=== PATIENT | female | born 1990 | race Caucasian/White ===

== ENCOUNTER 2016-09-02 11:16 | Emergency (ER) | payer OTHER, MEDICAID ==
[~2016-09-02] VITALS: Ht 162.6 cm; Wt 71.1 kg
[~2016-09-02 11:16] MED LIST: IRON18TA2 PO; MECL25CH PO
[2016-09-02 11:23] VITALS: BP 102/67; PULSE 86; RESP 16; TEMP 98.2; O2SAT 100
[2016-09-02] MEDS ORDERED: PREN29TA PO (11:34)
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
== END 2016-09-02 12:00 | disposition home or self-care (01) ==
LOC: PHED 11:16
DX: Z04.1 Encounter for examination and observation following transport accident (principal); O26.891 Other specified pregnancy related conditions, first trimester; Z3A.09 9 weeks gestation of pregnancy
CPT/HCPCS: 99283

== ENCOUNTER 2016-09-10 13:17 | Emergency (ER) | payer BC, MEDICAID ==
[~2016-09-10] VITALS: Ht 165.1 cm; Wt 71.3 kg
[~2016-09-10 13:17] MED LIST changes: -IRON18TA2 PO; -MECL25CH PO; +PREN29TA PO
[2016-09-10 13:27] VITALS: BP 117/81; PULSE 93; RESP 18; TEMP 99.2; O2SAT 98
[2016-09-10 14:43] LABS: BLOOD, URINE LARGE (NEG); GLUCOSE,URINE NEG (NEG); KETONE, URINE NEG (NEG); NITRITE,URINE NEG (NEG)
[2016-09-10] MEDS ORDERED: SODIUM CHLOR 0.9% 1000 ML INJ 1,000 ML IV ONE (15:15)
--- NOTE | 2016-09-10 15:15 | PD ---
HPI . Abdominal cramping and diarrhea Chief Complaint: Related Problem Time Seen by Provider: 14:25 Travel History International Travel<30 days: No Contact w/Intl Traveler<30days: No Traveled to known affect area: No History of Present Illness HPI Patient presents stating that she is about 10 weeks . She states that she started having abdominal cramping with diarrhea a day or 2 ago., She saw a brown vaginal discharge. She subsequently presented to us for evaluation. She has not been seen by OB yet. She does state that she was seen earlier ago and had an ultrasound done in the emergency department that showed a viable . 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 BEER) Tobacco Use: Yes (09/07 - PPD) Substance Use: No Allergies-Medications (Allergen,Severity, Reaction): Coded Allergies: No Known Allergies (Unverified , 09/10/16) Reported Meds & Prescriptions Reported Meds & Active Scripts Active Reported Plus Iron 29-1 mg ( Vit-Iron Carbonyl) 1 Tab Tab 1 Tab PO DAILY Review of Systems Except as stated in HPI: all other systems reviewed are Neg General / Constitutional: Positive: Other (fatigue), No: Fever, Chills Gastrointestinal: Positive: Diarrhea, Abdominal Pain, No: Vomiting Genitourinary: Positive: Discharge Physical Exam Narrative GENERAL: Healthy-appearing young lady in no acute distress. SKIN: Warm and dry. HEAD: Atraumatic. Normocephalic. EYES: Pupils equal and round. ENT: No nasal bleeding or discharge. Mucous membranes pink. Slightly dry. NECK: Trachea midline. Neck is supple. CARDIOVASCULAR: Regular rate and rhythm. RESPIRATORY: No accessory muscle use. GASTROINTESTINAL: Abdomen soft, non-tender, nondistended. : Normal female external genitalia. Scant old appearing blood in the vaginal vault. Os is closed. Uterus feel about 10 weeks in size. MUSCULOSKELETAL: No obvious deformities. No edema. NEUROLOGICAL: Awake and alert. No obvious cranial nerve deficits. Motor grossly within normal limits. Normal speech. PSYCHIATRIC: Appropriate mood and affect; insight and judgment normal. Data Data Last Documented VS Vital Signs Date Time Temp Pulse Resp B/P Pulse Ox O2 Delivery O2 Flow Rate FiO2 09/10/16 16:49 74 16 118/80 98 Room Air 09/10/16 13:27 99.2 Orders Beta Hcg (Quant/Titer) (09/10/16 14:26) Complete Rh (09/10/16 14:26) Urinalysis - C+S If Indicated (09/10/16 14:26) Ed Urine Pregnancytest Poc (09/10/16 14:26) Sodium Chlor 0.9% 1000 Ml Inj (Ns 1000 M (09/10/16 15:15) Gc And Chlamydia Pcr (09/10/16 15:15) Wet Prep Profile (09/10/16 15:15) Us Pelvis (Ques Preg/Ectopic) (09/10/16 ) Rhogam Only (09/10/16 16:48) Labs Laboratory Tests Test 09/10/16 09/10/16 09/10/16 14:35 14:43 16:34 Urine Color YELLOW Urine Turbidity CLOUDY Urine pH 6.0 Urine Specific [place] 1.014 Urine Protein NEG mg/dL Urine Glucose (UA) NEG mg/dL Urine Ketones NEG mg/dL Urine Occult Blood LARGE Urine Nitrite NEG Urine Bilirubin NEG Urine Leukocyte Esterase TRACE Urine RBC 0-3 /hpf Urine WBC 3-5 /hpf Urine Squamous Epithelial > 8 /hpf Cells Urine Bacteria FEW /hpf Microscopic Urinalysis Comment CULT NOT INDICATED Human Chorionic Gonadotropin, [address] MIU/ML Quant Blood Type O NEGATIVE Rho(D) Type NEGATIVE Clue Cells (Wet Prep) NONE SEEN Vaginal Trichomonas (Wet Prep) NONE SEEN Vaginal Yeast (Wet Prep) NONE SEEN MDM Medical Decision Making Medical Screen Exam Complete: Yes Emergency Medical Condition: Yes Differential Diagnosis Differential diagnosis of bleeding in includes but is not limited to physiologic bleeding, spontaneous AB, ectopic , placenta previa. Narrative Course Patient presents with dominant cramping and diarrhea. She is 10 weeks . She also has a scant discharge. I have done a quick look ultrasound and there is activity in the uterus. UA looks negative for infection. Quantitative hCG is 30,000. Wet prep is negative. Her blood type is O-. RhoGam was ordered. 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 Diagnosis Primary Impression: Bleeding in early Additional Impressions: Diarrhea Qualified Code: R19.7 - Diarrhea, unspecified type Abdominal cramping Patient Instructions: Acute Diarrhea (ED), General Instructions Disposition: 01 DISCHARGE HOME Condition: Stable Delia Law MD Sep 10, 2016 15:15
[2016-09-10 15:28] LABS: BETA HCG QUANT 30078 MIU/ML (0-5)
[2016-09-10 15:32] LABS: RBC, URINE 0-3 /hpf (0-3); URINE COLOR YELLOW (YELLW/STRAW)
[2016-09-10 15:33] LABS: BACTERIA, URINE FEW /hpf; COMMENT (UR) CULT NOT INDICATED; CULTURE IF INDICATED CULT NOT INDICATED; SQUAMOUS EPITHELIAL CELL URINE > 8 /hpf (0-5)
[2016-09-10 16:49] VITALS: BP 118/80; PULSE 74; RESP 16; O2SAT 98
--- NOTE | 2016-09-10 17:09 | RADHPO ---
EXAM DATE/TIME: 09/10/2016 16:06 [place] COMPARISON: No previous studies available for comparison. INDICATIONS : Pelvic cramping and brown vaginal discharge. LAB(S): Beta-hC MEDICAL HISTORY : . Seizures. Anemia. SURGICAL HISTORY : [place] teeth extraction. ENCOUNTER: Initial ACUITY: 4-6 days PAIN SCORE: 2/10 LOCATION: Bilateral pelvis MEASUREMENTS: UTERUS: 9.9 x 7.4 x 6.3 cm ENDOMETRIAL STRIPE: 20 mm RIGHT OVARY: 2.5 x 2.0 x 2.0 cm LEFT OVARY: 2.9 x 1.7 x 2.4 cm FINDINGS: UTERUS: Intrauterine gestational sac containing a pole is noted. Laura-rump length is 2.7 cm compatible with a gestational age of 9 weeks and 4 days. heart motion was documented at a heart rate of 1 62 beats per minute. A crescent shaped heterogeneous area of fluid accumulation is seen along the ges tational sac on the left. This measures 3.5 x 1.7 x 2.8 cm. Complex hypoechoic area seen along the right lateral margin of the vaginal wall it measures approxima tely 4.8 x 0.8 x 1.6 cm. RIGHT OVARY: Ovary contains no mass or significant cystic lesion. LEFT OVARY: A complex mixed echogenic cystic appearing lesion is identified the left ovary. It measures approxima tely 2.1 cm in size. MISCELLANEOUS: No free fluid. CONCLUSION: Intrauterine with a gestational age of approximately 9 weeks and 4 days. There is documente d heart motion. Suspected subchorionic hemorrhage along the left side of the gestational sac. Right lateral wall vaginal complex fluid collection. Complex left ovarian cyst suggesting a corpus luteal cyst. Armando Mills MD on September 10, 2016 at 17:01 Board Certified Radiologist. This report was verified electronically.
[2016-09-10 22:29] LABS: CHLAMYDIA PCR NOT DETECTED (NOT DETECT); NEISSERIA PCR NOT DETECTED (NOT DETECT)
== END 2016-09-10 17:27 | disposition home or self-care (01) ==
LOC: PHED 13:17
DX: O46.90 Antepartum hemorrhage, unspecified, unspecified trimester (principal); O99.611 Diseases of the digestive system complicating pregnancy, first trimester; R19.7 Diarrhea, unspecified; R10.9 Unspecified abdominal pain; Z3A.10 10 weeks gestation of pregnancy
CPT/HCPCS: 76700; 81001; 84702; 84703; 87210; 87491; 87591; J7030; 90384; J2790

== ENCOUNTER → 2016-09-11 | Outpatient (CLI) | payer MEDICAID | LOC: HPND 10:01 | PROVIDERS: ATTEND Emergency Medicine | DX: O36.0190 Maternal care for anti-D [Rh] antibodies, unspecified trimester, not applicable or unspecified (principal) | CPT/HCPCS: 90384; 96372; J2790 ==

== ENCOUNTER 2017-01-20 08:16 | Emergency (ER) | payer MEDICAID ==
[2017-01-20 08:32] VITALS: BP 98/63; PULSE 91; RESP 18; TEMP 98.3
[2017-01-20 08:45] VITALS: PULSE 84
--- NOTE | 2017-01-20 08:53 | PD ---
HPI Chief Complaint Back pain and pelvic pressure Date Seen: Jan 20, 2017 Time Seen: 08:46 (Angelina Villegas MD) Travel History International Travel<30 Days: No Contact w/Intl Traveler<30Days: No Known Affected Area: No (Angelina Villegas MD) History of Present Illness HPI This is a 28-year-old white female para 1001 is currently at 29 weeks she called me this morning complaining of pelvic pressure and back pain which is been increasing his last night. She also has not felt the baby move since last night I told her to come in for an evaluation Para: 1 : 2 (Angelina Villegas MD) History Past Medical History Medical History: Denies Significant Hx (Angelina Villegas MD) Past Surgical History Narrative Surgical Removal of wisdom teeth (Angelina Villegas MD) Family History Family History: Negative (Angelina Villegas MD) Social History Alcohol Use: Yes Tobacco Use: Yes Substance Abuse: Yes (Angelina Villegas MD) Allergies-Medications (Allergen,Severity, Reaction): Coded Allergies: No Known Allergies (Unverified , 09/10/16) Home Meds Reported Medications Vit-Iron Carbonyl ( Plus Iron 29-1 mg)1 Tab Tab1 Tab PO DAILY #30 TAB Ref 0 09/02/16 Review of Systems Except as stated in HPI: all other systems reviewed are Neg Genitourinary: Pelvic Pain (Angelina Villegas MD) Physical Exam Vital Signs Date Time Temp Pulse Resp B/P Pulse Ox O2 Delivery O2 Flow Rate FiO2 01/20/17 08:32 98.3 91 18 98/63 Narrative GENERAL: Well-nourished, well-developed patient. SKIN: Warm and dry. HEAD: Normocephalic and atraumatic. EYES: No scleral icterus. No injection or drainage. ENT: No nasal drainage noted. Mucous membranes pink. Airway patent. NECK: Supple, trachea midline. No JVD. CARDIOVASCULAR: Regular rate and rhythm without murmurs, gallops, or rubs. RESPIRATORY: Breath sounds equal bilaterally. No accessory muscle use. BREASTS: Bilateral exam showed no masses , no retractions, no nipple discharge. ABDOMEN/GI: Abdomen soft, non-tender, bowel sounds present, no rebound, no guarding Gravid to [29] weeks size EXTREMITIES: No cyanosis or edema. BACK: Nontender without obvious deformity. No CVA tenderness. NEUROLOGICAL: Awake and alert. Motor and sensory grossly within normal limits. Five out of 5 muscle strength in all muscle groups. Normal speech. (Angelina Villegas MD) Data Data Orders Vital Signs (Adult) .ON ADMISSION (01/20/17 08:24) ^ Labor Status (01/20/17 08:24) ^ Hydration (01/20/17 08:24) Urinalysis - C+S If Indicated (01/20/17 08:37) Fibronectin (01/20/17 08:37) (Angelina Villegas MD) Labs Laboratory Tests Test 01/20/17 01/20/17 08:30 09:00 Urine Color LIGHT-YELLOW (YELLW/STRAW) Urine Turbidity CLEAR (CLEAR) Urine pH 7.0 (5.0-8.5) Urine Specific [place] 1.003 (1.002-1.035) Urine Protein NEG mg/dL (NEG-TRACE) Urine Glucose (UA) NEG mg/dL (NEG) Urine Ketones NEG mg/dL (NEG) Urine Occult Blood NEG (NEG) Urine Nitrite NEG (NEG) Urine Bilirubin NEG (NEG) Urine Urobilinogen LESS THAN 2.0 MG/DL (LESS THAN 2.0) Urine Leukocyte Esterase NEG (NEG) Urine RBC LESS THAN 1 /hpf (0-3) Urine WBC 1 /hpf (0-5) Urine Squamous Epithelial 1 /hpf (0-5) Cells Urine Mucus FEW /lpf (OCC) Microscopic Urinalysis Comment CULT NOT INDICATED Fibronectin NEGATIVE (NEGATIVE) (Estelita Dominique MD) MDM Medical Record Reviewed: No Narrative Course / MDM 28-year-old female with back pain and pelvic pressure she is having no problems with micturition or bowel movements patient diarrhea or other reasons to have this in check a urinalysis and do a fibronectin to make sure she is not in labor and any uterine contractions Decreased movement we'll go ahead and get a strip to make sure the baby is okay Rh- she got RhoGAM in September all checked to make sure that she gets her 28 week program Smoker of advised her to quit please send a copy of this to Dr. More's office (Angelina Villegas MD) Diagnosis Diagnosis: Primary Impression: Back pain affecting in third trimester Additional Impressions: Feeling pelvic pressure during in third trimester, antepartum 29 weeks gestation of Disposition: 01 DISCHARGE HOME Condition: Good Angelina Vlilegas MD Jan 20, 2017 08:53 Estelita Dominique MD Jan 20, 2017 09:52
[2017-01-20 08:59] LABS: BLOOD, URINE NEG (NEG); COMMENT (UR) CULT NOT INDICATED; CULTURE IF INDICATED CULT NOT INDICATED; GLUCOSE,URINE NEG (NEG); KETONE, URINE NEG (NEG); MUCUS URINE FEW /lpf (OCC); NITRITE,URINE NEG (NEG); SQUAMOUS EPITHELIAL CELL URINE 1 /hpf (0-5); URINE COLOR LIGHT-YELLOW (YELLW/STRAW)
== END 2017-01-20 10:00 | disposition home or self-care (01) ==
LOC: HOBED 08:16
DX: O26.893 Other specified pregnancy related conditions, third trimester (principal); Z3A.29 29 weeks gestation of pregnancy
CPT/HCPCS: 81001; 82731; 99283

== ENCOUNTER 2017-02-20 21:52 | Emergency (ER) | payer MEDICAID ==
--- NOTE | 2017-02-20 23:14 | PD ---
HPI Chief Complaint Left lower quadrant pain, vaginal discharge, insomnia for 2 nights Date Seen: Feb 20, 2017 Time Seen: 23:11 Travel History International Travel<30 Days: No Contact w/Intl Traveler<30Days: No Known Affected Area: No History of Present Illness HPI Twice 6-year-old who is at 32 weeks and 6 days comes in complaining of insomnia for the past 2 nights. His had an increase in vaginal discharge that seems to be white mucousy in appearance. She denies any new sexual partners, denies itching, denies irritation. She's had good movement. For the past 2 days she is describing a crampy left lower quadrant pain intermittently not associated with contractions. Denies vaginal bleeding. Patient denies any complications History Past Medical History Medical History: Denies Significant Hx Obstetric History Obstetric History Spontaneous vaginal delivery at term Past Surgical History Surgical History: No Previous Surgery Family History Family History: Negative Social History Alcohol Use: No Tobacco Use: Yes Substance Abuse: No Allergies-Medications (Allergen,Severity, Reaction): Coded Allergies: No Known Allergies (Unverified , 09/10/16) Home Meds Reported Medications Vit-Iron Carbonyl ( Plus Iron 29-1 mg)1 Tab Tab1 Tab PO DAILY #30 TAB Ref 0 09/02/16 Review of Systems Except as stated in HPI: all other systems reviewed are Neg Physical Exam Narrative GENERAL: Well-nourished, well-developed patient. SKIN: Warm and dry. HEAD: Normocephalic and atraumatic. EYES: No scleral icterus. No injection or drainage. ENT: No nasal drainage noted. Mucous membranes pink. Airway patent. NECK: Supple, trachea midline. No JVD. CARDIOVASCULAR: Regular rate and rhythm without murmurs, gallops, or rubs. ABDOMEN/GI: Abdomen soft, non-tender, bowel sounds present, no rebound, no guarding Gravid to [32-] weeks size Fundal Height: [-] GENITOURINARY: External Genitalia: intact and normal in appearance BUS glands: [Normal-] Cervix: [-Posterior] Dilatation: [-Closed] Effacement: [0-] Station: [--3] Presentation: [-Vertex] Membranes: [intact ] Uterine Contractions: [-Absent] FHT's: Category: [-1] Baseline: [-140] Reactive: [-] Moderate Variability: [-] Moderate Decels: [-] Absent EXTREMITIES: No cyanosis or edema. BACK: Nontender without obvious deformity. No CVA tenderness. NEUROLOGICAL: Awake and alert. Motor and sensory grossly within normal limits. Five out of 5 muscle strength in all muscle groups. Normal speech. Data Data Vital Signs Reviewed: Yes [facility] Medical Record Reviewed: Yes Plan 26-year-old at 32-33 weeks gestation #1 round ligament painleft-sided recommend decreased lifting and possible support belt #2 speculum exam reveals no abnormal discharge seen patient was reassured #3 unable to sleep 2 nights recommended Benadryl in small quantities as necessary Follow-up with OB provider as scheduled Diagnosis Diagnosis: Primary Impression: 32 weeks gestation of Additional Impressions: Pain of round ligament affecting , antepartum Insomnia Disposition: 01 DISCHARGE HOME Glenys Martínez MD Feb 20, 2017 23:14
== END 2017-02-20 23:17 | disposition home or self-care (01) ==
LOC: HOBED 21:52
DX: O26.899 Other specified pregnancy related conditions, unspecified trimester (principal); R10.2 Pelvic and perineal pain; G47.00 Insomnia, unspecified; Z72.0 Tobacco use; Z3A.32 32 weeks gestation of pregnancy
CPT/HCPCS: 59025

== ENCOUNTER 2017-03-26 11:48 | Inpatient (IN) | payer MEDICAID ==
[~2017-03-26] VITALS: Ht 162.6 cm; Wt 76.0 kg
[2017-03-26 13:06] LABS: AUTOMATED NEUTROPHIL # 11.8 TH/MM3 (1.8-7.7); BASOPHIL % 0.1 % (0.0-2.0); EOSINOPHIL % 0.3 % (0.0-4.0); HEMATOCRIT 36.7 % (35.0-46.0); HEMO FLAGS DIFF FINAL; LYMPH % 13.6 % (9.0-44.0); MEAN CELL VOLUME 89.8 FL (80.0-100.0); MEAN CORPUSCULAR HEMOGLOBIN 30.7 PG (27.0-34.0); MEAN CORPUSCULAR HGB CONC 34.2 % (32.0-36.0); MONO % 4.6 % (0.0-8.0); NEUT % 81.4 % (16.0-70.0); PLATELET COUNT 205 TH/MM3 (150-450); RED BLOOD COUNT 4.09 MIL/MM3 (4.00-5.30); RED CELL DISTRIBUTION WIDTH 12.9 % (11.6-17.2); WHITE BLOOD COUNT 14.5 TH/MM3 (4.0-11.0)
[2017-03-26] MEDS ORDERED: CITRIC ACID-SODIUM CITRATE LIQ 30 ML UDC PO SCH (13:15)
[2017-03-26] MEDS ORDERED: LACTATED RINGER'S 1000 ML BOLUS IV PRN (13:15)
[2017-03-26] MEDS ORDERED: NS 1000 ML IV PRN (13:15)
[2017-03-26] MEDS ORDERED: MINERAL OIL 10 ML VIAL TOPICAL PRN (13:15)
[2017-03-26] MEDS ORDERED: NS 500 ML BOLUS IV PRN (13:15)
[2017-03-26] MEDS ORDERED: LIDOCAINE HCL 1% 50 ML VIAL INFIL PRN (13:15)
[2017-03-26] MEDS ORDERED: OXYTOCIN 30 UNITS 500ML PREMIX IV ONE (13:15)
[2017-03-26] MEDS ORDERED: LIDOCAINE HCL 1% 50 ML VIAL I-DERMAL PRN (13:15)
[2017-03-26] MEDS ORDERED: OXYTOCIN 30 UNITS/NS 500ML PREMIX IV SCH (13:30)
[2017-03-26] MEDS: LACTATED RINGER'S 1000 ML IV SCH ×2 (13:40→17:46)
[2017-03-26 14:22] LABS: BACTERIA, URINE RARE /hpf; BLOOD, URINE TRACE (NEG); GLUCOSE,URINE NEG (NEG); KETONE, URINE NEG (NEG); NITRITE,URINE NEG (NEG); PH, URINE 6.5 (5.0-8.5); SQUAMOUS EPITHELIAL CELL URINE 2 /hpf (0-5); URINE COLOR LIGHT-YELLOW (YELLW/STRAW)
[2017-03-26 14:23] LABS: COMMENT (UR) CULT NOT INDICATED; CULTURE IF INDICATED CULT NOT INDICATED
[2017-03-26] MEDS ORDERED: ACETAMINOPHEN 325 MG TAB PO ONE (16:30)
--- NOTE | 2017-03-26 17:11 | MH ---
cc: MATTHEW CAMPUZANO DATE OF ADMISSION 03/26/2017 DATE OF 1990 CHIEF COMPLAINT 37 -5/7 weeks intrauterine with intrauterine growth restriction, oligohydramnios and favorable cervix. HISTORY OF THE PRESENT CONDITION The patient is a 26-year-old single, white female 2, para 1-0-0-1 with LMP unclear but EDC April 11 by 10 week and 5 day ultrasound on September 18, 2016. Her initial was complicated by oligohydramnios and she was followed safely to term and then induced. She was followed with biophysicals during this and was noted to have a baby in the 30th percentile at 34 weeks and now at 37 weeks the baby's in the 3rd percentile. Interval biophysical profiles have been reassuring with normal fluid but today with oligo and the obvious lack of growth she is being admitted for induction. She is 2-3 cm, 80%, and the cervix is very much on her left and the baby is low. Estimated weight is on her ACOG and in the chart. She had no labor, gestational diabetes or hypertensive disease. She did smoke half a pack throughout the . She had normal weight gain and it was consistent with her care. She desires a tubal ligation. Her blood type is O negative. Her hemoglobin was 12.3. Her Pap smear is normal. She is not immune to [place] measles. Her cultures were negative. Serology negative. Hepatitis C negative. She did receive RhoGAM. Her Glucola was 129. Her Group B strep is actually negative. PHYSICAL EXAMINATION GENERAL: She is a slim white female in no acute distress. VITAL SIGNS: Afebrile. Stable vital signs. LUNGS: Clear. HEART: Rate and rhythm are regular. ABDOMEN: Fundus is 33. PELVIC: Cervix is 2 cm, 80%, very high on her right side but the baby is very low and it is effaced and the baby is well applied. EXTREMITIES: Unremarkable. IMPRESSION Intrauterine growth retardation at 37-1/2 weeks with oligohydramnios. There was a question of peripheral cord insertion early in the but it was felt that that was ruled out later. I am now beginning to question that there may be some reason for placental insufficiency. She will be started on low-dose Pitocin protocol and see if she can tolerate labor. MD HEAVEN Guerra/KK /4:04 PM /4:52 PM
[2017-03-26] MEDS ORDERED: NICOTINE 21 MG/24 HR PATCH T-DERMAL SCH (18:45)
[2017-03-26] MEDS ORDERED: DINOPROSTONE 10 MG INSERT-LEAVE FOR 12 HOURS VAGINAL ONE (20:45)
[2017-03-26] MEDS ORDERED: SODIUM CHLORIDE 0.9% FLUSH 10 ML FLUSH IV FLUSH PRN ×2 (20:45)
[2017-03-26] MEDS: LACTATED RINGER'S 1000 ML INJ 1,000 ML IV SCH (21:14)
[2017-03-27] MEDS: LACTATED RINGER'S 1000 ML INJ 1,000 ML IV SCH ×2 (03:07→06:43)
[2017-03-27] MEDS ORDERED: PROMETHAZINE INJ 25 MG/ML VIAL IM PRN (03:45)
[2017-03-27] MEDS ORDERED: fentaNYL 2MCG-BUPIV 0.125% INJ 100 ML ONE (05:27)
[2017-03-27] MEDS ORDERED: ePHEDrine/NS 25 MG/5 ML SYR IV PRN (06:45)
[2017-03-27] MEDS ORDERED: NO SYSTEM NARCOTICS PRN (06:45)
[2017-03-27] MEDS ORDERED: DO NOT ADMINISTER ANTICOAGULANTS PRN (06:45)
[2017-03-27] MEDS ORDERED: fentaNYL 2MCG-BUPIV 0.125% 100 ML EPIDURAL SCH (06:45)
--- NOTE | 2017-03-27 07:51 | PD.LABORPN ---
Subjective Subjective Comfortable with epidural did not sleep Objective Vital Signs Vital Signs Date Time Temp Pulse Resp B/P (MAP) Pulse Ox O2 Delivery O2 Flow Rate FiO2 03/27/17 06:42 18 Objective 6-7/80/-1 arom port wine fluid strip reassuring with no significant decels, some accels and moderate BTBV proven pelvis EFW 5 pounds] Weeks Gestation: 37 Gest Age Assessed Date: Mar 26, 2017 Gest Age Assessed Time: 09:00 Pt started active labor?: Yes Active labor start date: Mar 26, 2017 Active labor start time: 03:00 Medical induction of labor?: Yes Medical induction start date: Mar 26, 2017 Medical induction start time: 12:00 Artificial rupture of membrane: Yes Artificial ROM date: Mar 27, 2017 Artifical ROM time: 07:49 Assessment/Plan Assessment and Plan induction for IUGR and rapid fall off the growth curve--from 29% to 8% in four weeks oligohydramnios at time of BPP tolerating labor anticipate Erika Castro MD Mar 27, 2017 07:51
[2017-03-27] MEDS ORDERED: REMOVE OLD NICODERM (NICOTINE) PATCH T-DERMAL SCH (09:00)
[2017-03-27] MEDS ORDERED: PNEUMOCOCCAL POLYVALENT INJ 25 MCG/0.5 ML SYR IM ONE (10:00)
--- NOTE | 2017-03-27 10:01 | PD.OB.DELI ---
Weeks gestation: 37 Gest age assessed date: Mar 26, 2017 Gest age assessed time: 09:00 Pt started active labor?: Yes Active labor start date: Mar 26, 2017 Active labor start time: 03:00 Medical induction of labor?: Yes Medical induction start date: Mar 26, 2017 Medical induction start time: 12:00 Artificial rupture of membrane: Yes Artificial ROM date: Mar 27, 2017 Artifical ROM time: 07:49 Anesthesia: Epidural Episiotomy: None Vaginal Delivery: Normal Presentation: Occiput anterior Nuchal Cord: x1 (reduced at perineum) : Female Delivery date: Mar 27, 2017 Delivery time: 09:52 One Minute : 9 Five Minute : 9 Weight: 5 lb Placenta: Spontaneous delivery Laceration: No lacerations Estimated blood loss: 200ml Chetna Love MD Mar 27, 2017 10:01
[2017-03-27] MEDS ORDERED: DOCUSATE SODIUM 50 MG/SENNA 8.6 MG TAB PO PRN (10:15)
[2017-03-27] MEDS ORDERED: SODIUM CHLORIDE 0.9% FLUSH 10 ML FLUSH IV FLUSH PRN (10:15)
[2017-03-27] MEDS ORDERED: BENZOCAINE 20% TOPICAL SPRAY 60 ML CAN TOPICAL PRN (10:15)
[2017-03-27] MEDS ORDERED: ZOLPIDEM TARTRATE 5 MG TAB PO PRN (10:15)
[2017-03-27] MEDS ORDERED: ONDANSETRON ODT 4 MG TAB PO PRN (10:15)
[2017-03-27] MEDS ORDERED: WITCH HAZEL 50%/GLYCERIN 12.5% 40 PAD JAR TOPICAL PRN (10:15)
[2017-03-27] MEDS ORDERED: OXYTOCIN 30 UNITS-500ML PREMIX 500 ML IV SCH (10:15)
[2017-03-27] MEDS ORDERED: ALUMINUM/MAGNESIUM/SIMETH 30 ML CUP PO PRN (10:15)
[2017-03-27] MEDS: ACETAMINOPHEN 325 MG TAB PO PRN ×2 (13:16→21:14)
[2017-03-27] MEDS: IBUPROFEN 600 MG TAB PO PRN ×2 (13:17→21:14)
[2017-03-27] MEDS ORDERED: MEASLES, MUMPS, RUBELLA VACCINE 0.5 ML VIAL SQ ONE (16:00)
[2017-03-27] MEDS ORDERED: DIPHTH/TETANUS/ACEL PERTUSSIS (BOOSTER) 0.5 ML VIAL/PFS IM ONE (16:00)
[2017-03-27] MEDS ORDERED: SODIUM CHLORIDE 0.9% FLUSH 10 ML FLUSH IV FLUSH SCH (21:00)
[2017-03-28 08:00] VITALS: BP 98/62; PULSE 62; RESP 16; TEMP 98.7; O2SAT 100
--- NOTE | 2017-03-28 08:38 | HHI.OB ---
Subjective Post Day: 1 Remarks PPD#1, Doing well, anticipate discharge today Objective Vitals/I&O Vital Signs Date Time Temp Pulse Resp B/P (MAP) Pulse Ox O2 Delivery O2 Flow Rate FiO2 03/28/17 08:00 98.7 62 16 98/62 (74) 100 Objective Remarks GENERAL: Well-nourished, well-developed patient. CARDIOVASCULAR: Regular rate and rhythm without murmurs, gallops, or rubs. RESPIRATORY: Breath sounds equal bilaterally. No accessory muscle use. ABDOMEN/GI: Abdomen soft, non-tender. Fundus: Firm, non-tender at umbilicus. GENITOURINARY: Light to moderate bleeding. EXTREMITIES: No cyanosis or edema, non-tender, without signs of DVT. Medications and IVs Current Medications Medications (Trade) Dose Ordered Sig/Joe Route Start Time Stop Time Status Last Admin (NS Flush) 2 ml BID IV FLUSH 03/27/17 21:00 (NS Flush) 2 ml UNSCH PRN IV FLUSH 03/27/17 10:15 (Tylenol) 650 mg Q4H PRN PO 03/27/17 10:15 03/27/17 21:14 (Motrin) 600 mg Q6H PRN PO 03/27/17 10:15 03/27/17 21:14 (Americaine 20% Top Spr) 1 spray Q4H PRN TOPICAL 03/27/17 10:15 (Tucks Pads) 1 applic QID PRN TOPICAL 03/27/17 10:15 (Christelle-Colace) 2 tab Q12H PRN PO 03/27/17 10:15 (Ambien) 5 mg HS PRN PO 03/27/17 10:15 (Mag-Al Plus Susp Liq) 15 ml Q8H PRN PO 03/27/17 10:15 (Zofran Odt) 4 mg Q6H PRN PO 03/27/17 10:15 Assessment/Plan Assessment and Plan PPD#1, Stable, is cleared for discharge Discharge Planning Routine Attending Attestation seen by Mati Muhammad MD Mar 28, 2017 08:38
--- NOTE | 2017-03-28 08:39 | HHI.DS ---
Admission Date Mar 26, 2017 at 11:48 Admitting Diagnosis Diagnosis: Delivery Date: Mar 27, 2017 Vaginal Delivery: Normal Infant: Female Pt Condition on Discharge: Good Discharge Disposition: Discharge Home Discharge Instructions Diet Instructions: As Tolerated, No Restrictions Activities You Can Perform: Shower Only-No Bath Activities to Avoid: Driving for 24 hrs, Prolonged Standing, Strenuous Activity , Sexual Activity Mati Harris MD Mar 28, 2017 08:39
[2017-03-28] MEDS: IBUPROFEN 600 MG TAB PO PRN (12:47)
[2017-03-28] MEDS: ACETAMINOPHEN 325 MG TAB PO PRN (12:47)
== END 2017-03-28 16:37 | disposition home or self-care (01) | DRG 775 ==
LOC: H2EB 11:48 → H1EA 03-27 12:24
PROVIDERS: ADMIT Obstetrics & Gynecology; ATTEND Obstetrics & Gynecology
PROC: 3E033VJ Introduction of Other Hormone into Peripheral Vein, Percutaneous Approach (ICD-10-PCS; 2017-03-26)
PROC: 10E0XZZ Delivery of Products of Conception, External Approach (ICD-10-PCS; principal; 2017-03-27)
PROC: 10907ZC Drainage of Amniotic Fluid, Therapeutic from Products of Conception, Via Natural or Artificial Opening (ICD-10-PCS; 2017-03-27)
PROC: 3E0S3CZ (ICD-10-PCS; 2017-03-27)
PROC: 00HU33Z Insertion of Infusion Device into Spinal Canal, Percutaneous Approach (ICD-10-PCS; 2017-03-27)
DX: O41.03X0 Oligohydramnios, third trimester, not applicable or unspecified (principal); O36.5930 Maternal care for other known or suspected poor fetal growth, third trimester, not applicable or unspecified; O99.334 Smoking (tobacco) complicating childbirth; F17.210 Nicotine dependence, cigarettes, uncomplicated; Z37.0 Single live birth; Z3A.37 37 weeks gestation of pregnancy
CPT/HCPCS: 59025; 81001; 85025; 85461; 86850; 86900; 86901; 88307; 90384; J2550; J2590; J2790; J3010; J7120